=== PATIENT | female | born 1970 | race Hispanic/Latino ===

== ENCOUNTER → 2020-12-28 | Outpatient (CLI) | payer BC | END | disposition home or self-care (01) | LOC: RAH 11:42 | PROVIDERS: ATTEND Obstetrics & Gynecology | DX: Z12.31 Encounter for screening mammogram for malignant neoplasm of breast (principal) | CPT/HCPCS: 77067 ==

== ENCOUNTER → 2023-09-25 | Outpatient (CLI) | payer BC | END | disposition home or self-care (01) | LOC: RAH 08:51 | PROVIDERS: ATTEND Obstetrics & Gynecology | DX: Z12.31 Encounter for screening mammogram for malignant neoplasm of breast (principal) | CPT/HCPCS: 77067 ==

== ENCOUNTER → 2023-12-21 | Outpatient (CLI) | payer BC | END | disposition home or self-care (01) | LOC: RAH 13:48 | PROVIDERS: ATTEND Internal Medicine Nephrology | DX: K80.20 Calculus of gallbladder without cholecystitis without obstruction (principal); N20.0 Calculus of kidney | CPT/HCPCS: 74176 ==

== ENCOUNTER → 2025-04-14 | Outpatient (CLI) | payer BC ==
--- NOTE | 2025-04-14 13:40 | HMCIMG ---
Exam Type: Complete abdominal ultrasound with hepatic color-flow Doppler Findings: The liver shows fatty infiltration and is enlarged, measuring 17 and is otherwise unremarkable. Doppler evaluation shows patent portal and hepatic veins. The gallbladder is surgically absent. No bile duct dilatation is noted. Th The common bile duct measures 5 mm. The right kidney measures 11.4 x 3.7 cm. The left kidney measures 10.3 x 4.7 cm. The kidneys show no hydronephrosis or calculi, masses or other abnormalities. The pancreas is unremarkable. The spleen is unremarkable. The aorta and inferior vena cava show no significant abnormalities. IMPRESSION: FATTY LIVER INFILTRATION AND HEPATOMEGALY. Status post cholecystectomy. OTHERWISE NORMAL ABDOMINAL ULTRASOUND.
== END | disposition home or self-care (01) ==
LOC: RAH 10:40
PROVIDERS: ATTEND Internal Medicine Nephrology
DX: K76.0 Fatty (change of) liver, not elsewhere classified (principal); R16.0 Hepatomegaly, not elsewhere classified; R10.819 Abdominal tenderness, unspecified site; Z90.49 Acquired absence of other specified parts of digestive tract
CPT/HCPCS: 76700

== ENCOUNTER → 2025-06-14 | Outpatient (CLI) | payer BC ==
--- NOTE | 2025-06-15 07:39 | HMCIMG ---
EXAMINATION: MR CHOLANGIOPANCREATOGRAPHY CLINICAL HISTORY: Epigastric pain. COMPARISON: Compared to prior ultrasound dated April 14, [address] dated December 21, 2024. TECHNIQUE: Multiplanar images were obtained without intravenous contrast, utilizing a series of customized pulse sequences. Sagittal and coronal reformatted images submitted for interpretation. FINDINGS: The liver is normal in size and signal with no focal lesions. The gallbladder is surgically absent. There is no biliary duct dilatation. There are no ductal stones. The pancreas demonstrates normal size and signal without mass or peripancreatic fluid. The spleen is normal in size and configuration. The adrenal glands are normal bilaterally without masses. There are few left renal cysts, largest measuring 1.2 x 1.2 x 1.2 cm in the lower pole. The kidneys are otherwise normal in size and configuration with no evidence of stone, hydronephrosis, or significant additional cysts. There is no retroperitoneal mass or lymphadenopathy. The visualized abdominal aorta is normal in size and configuration without stenosis or aneurysm. The bowel and mesentery are normal without dilatation, wall thickening, fluid collection, mesenteric stranding, or lymphadenopathy. The abdominal wall is unremarkable. The visualized bones appear normal. IMPRESSION: Status post cholecystectomy. No biliary duct dilatation. No ductal stones. Simple cyst in the left kidney. Otherwise, normal kidneys. No hydronephrosis. /[place]
== END | disposition home or self-care (01) ==
LOC: RAH 07:41
PROVIDERS: ATTEND Internal Medicine Gastroenterology
DX: N28.1 Cyst of kidney, acquired (principal); R10.13 Epigastric pain; Z90.49 Acquired absence of other specified parts of digestive tract
CPT/HCPCS: 74181; S8037